=== PATIENT | female | born 1970 | race Two or more races ===

== ENCOUNTER → 2021-07-04 | Day surgery (SDC) | payer OTHER ==
[~2021-07-04] MED LIST: FLONASE16 GM
== END | disposition home or self-care (01) ==
LOC: CIR.AMB 07-03 10:00 → ADM 07-03 10:00 → CIR.AMB 06:30
PROVIDERS: ATTEND Surgery
DX: D05.12 Intraductal carcinoma in situ of left breast (principal); Z90.13 Acquired absence of bilateral breasts and nipples; Z20.822 Contact with and (suspected) exposure to COVID-19
CPT/HCPCS: 19357; 19303; 38525; 38792; C1789